=== PATIENT | male | born 1975 | race Caucasian/White ===

== ENCOUNTER 2023-03-23 17:40 | Emergency (ER) | payer OTHER ==
[2023-03-23] MEDS ORDERED: Lidocaine 1% 5 ML VIAL INJECT ONE (17:49)
== END 2023-03-23 18:09 | disposition home or self-care (01) ==
LOC: MERGE 17:40 → DL.ED 17:40
DX: S60.352A Superficial foreign body of left thumb, initial encounter (principal); W45.8XXA Other foreign body or object entering through skin, initial encounter
CPT/HCPCS: 64450; 99283; J3490